=== PATIENT | female | born 1925 | race Caucasian/White ===

== ENCOUNTER 2016-10-08 10:51 | Inpatient (IN) | payer MEDICARE, OTHER ==
[~2016-10-08] VITALS: Ht 157.5 cm; Wt 65.7 kg
[~2016-10-08 10:51] MED LIST: BACL10TA PO; FURO20TA4 GT
[2016-10-08] MEDS ORDERED: ACET-2247 PO (11:16)
[2016-10-08] MEDS ORDERED: MOM30 PO (11:16)
[2016-10-08] MEDS ORDERED: ALBU8HFA IH (11:16)
[2016-10-08] MEDS ORDERED: BISA5TAB12 PO (11:16)
[2016-10-08 12:31] LABS: BASOPHILS % (AUTO) 0.5 % (0.0-2.0); EOSINOPHILS % (AUTO) 0.1 % (1.0-6.0); HEMATOCRIT 46.2 % (36-46); HEMOGLOBIN 14.7 g/dL (12.0-16.0); LYMPHOCYTES # (AUTO) 2.1 K/uL (1.0-4.8); LYMPHOCYTES % (AUTO) 13.9 % (22.0-44.0); MEAN CORPUSCULAR HEMOGLOBIN 29.9 pg (26.0-34.0); MEAN CORPUSCULAR HGB CONC 31.8 G/dL (31.0-37.0); MEAN CORPUSCULAR VOLUME 94 fL (80-100); MONOCYTES # (AUTO) 1.3 K/uL (0.1-1.0); MONOCYTES % (AUTO) 8.6 % (2.0-9.0); NEUTROPHILS # (AUTO) 11.6 K/uL (1.8-7.7); NEUTROPHILS % (AUTO) 76.9 % (40.0-70.0); PLATELET COUNT (AUTO) 125 K/uL (150-450); RED BLOOD CELL COUNT(AUTO) 4.91 MIL/uL (4.00-5.20); RED CELL DISTRIBUTION WIDTH 13.9 % (11.5-14.5); WHITE BLOOD COUNT (AUTO) 15.1 K/uL (4.5-11.0)
[2016-10-08 12:41] LABS: PROTHROMBIN TIME 10.7 SEC (9.4-11.6)
[2016-10-08 13:53] LABS: ANION GAP 4 mmol/L (8-16); CALCIUM, TOTAL 8.9 mg/dL (8.8-10.5); CARBON DIOXIDE 32 mmol/L (22-29); CHLORIDE 92 mmol/L (98-107); CREATININE 0.71 mg/dL (0.60-1.30); GLOMERULAR FILTR. RATE CALC > 60 mL/min (>60); POTASSIUM 4.8 mmol/L (3.5-5.1); SODIUM SERUM 128 mmol/L (136-145); UREA NITROGEN, BLOOD 22 mg/dL (7-18)
[2016-10-08 14:13] LABS: APPEARANCE,URINE CLOUDY (CLEAR); GLUCOSE, URINE (UA) NEGATIVE (NEGATIVE); KETONES,URINE NEGATIVE (NEGATIVE); LEUKOCYTE ESTERASE ,URINE NEGATIVE (NEGATIVE); OCCULT BLOOD,URINE NEGATIVE (NEGATIVE); PROTEIN,URINE POS 1+ (NEGATIVE)
[2016-10-08 14:14] LABS: ADD UA MICROSCOPIC YES
[2016-10-08 14:15] LABS: B-TYPE NATRIURETIC PEPTIDE 215 pg/mL (0-100)
[2016-10-08 14:18] LABS: ALANINE AMINOTRANSFERASE 34 U/L (12-78); ALBUMIN 2.7 g/dL (3.4-5.0); ASPARTATE AMINOTRANSFERASE 26 U/L (15-37); BILIRUBIN,TOTAL 0.6 mg/dL (0.1-1.0); CREATINE KINASE MB 1.8 ng/mL (0-5); CREATINE KINASE, TOTAL 156 U/L (26-192); TOTAL PROTEIN, SERUM 7.3 g/dL (6.4-8.2)
[2016-10-08 14:23] LABS: RBC,URINE None Seen /HPF (0-2); SQUAMOUS EPITHELIAL CELL,UR Few /LPF (None Seen); WBC,URINE None Seen /HPF (0-5)
[2016-10-08] MEDS ORDERED: SODIUM CHLORIDE 0.9% 1,000 ML IV ONE (15:30)
[2016-10-08] MEDS ORDERED: VANCOMYCIN HCL 1 GM/D5% WATER 200 ML IV ONE (15:45)
[2016-10-08 17:25] VITALS: BP 164/76
[2016-10-08] MEDS: DEXTROSE 5%-0.45% SODIUM CHL 1,000 ML IV SCH (19:27)
[2016-10-08 20:12] VITALS: BP 123/52
[2016-10-08] MEDS ORDERED: ONDANSETRON HCL 4 MG/2 ML VIAL IVP PRN (21:00)
[2016-10-08] MEDS ORDERED: BISACODYL 10 MG RECTAL RECTAL SUPPOSITORY PR PRN (21:00)
[2016-10-08] MEDS ORDERED: ACETAMINOPHEN 325 MG TABLET PO PRN (21:00)
[2016-10-08 23:31] VITALS: BP_SYST 160; BP_SYST 162; BP_DIAS 72; BP_DIAS 91
[2016-10-08] MEDS: HEPARIN SODIUM,PORCINE 5,000 UNITS/ML VIAL SQ SCH (23:44)
[2016-10-09] VITALS (7 sets, daily range): BP systolic 113–147; BP diastolic 44–92
[2016-10-09] MEDS ORDERED: 0.9% SODIUM CHLORIDE 5 ML NEB SOLUTION NEB ONE ×3 (00:27→23:55)
[2016-10-09] MEDS: ALBUTEROL SULFATE 2.5 MG/0.5 ML NEB SOLUTION NEB PRN ×2 (00:27→20:06)
[2016-10-09] MEDS ORDERED: SODIUM CL IRRIG SOLN BOTTLE 250 ML IRRIG ONE (00:30)
[2016-10-09 07:11] LABS: BASOPHILS # (AUTO) 0.02 K/uL (0.00-0.20); BASOPHILS % (AUTO) 0.2 % (0.0-2.0); EOSINOPHILS # (AUTO) 0.01 K/uL (0.00-0.70); EOSINOPHILS % (AUTO) 0.12 % (1.0-6.0); HEMATOCRIT 44.7 % (36-46); HEMOGLOBIN 14.4 g/dL (12.0-16.0); LYMPHOCYTES # (AUTO) 1.3 K/uL (1.0-4.8); MEAN CORPUSCULAR HEMOGLOBIN 30.9 pg (26.0-34.0); MEAN CORPUSCULAR HGB CONC 32.2 G/dL (31.0-37.0); MEAN CORPUSCULAR VOLUME 96 fL (80-100); MONOCYTES # (AUTO) 0.4 K/uL (0.1-1.0); MONOCYTES % (AUTO) 3.9 % (2.0-9.0); NEUTROPHILS # (AUTO) 8.9 K/uL (1.8-7.7); NEUTROPHILS % (AUTO) 83.8 % (40.0-70.0); PLATELET COUNT (AUTO) 149 K/uL (150-450); RED BLOOD CELL COUNT(AUTO) 4.65 MIL/uL (4.00-5.20); RED CELL DISTRIBUTION WIDTH 14.2 % (11.5-14.5); WHITE BLOOD COUNT (AUTO) 10.6 K/uL (4.5-11.0)
[2016-10-09 07:28] LABS: ANION GAP 4 mmol/L (8-16); CALCIUM, TOTAL 8.9 mg/dL (8.8-10.5); CARBON DIOXIDE 31 mmol/L (22-29); CHLORIDE 93 mmol/L (98-107); CREATININE 0.65 mg/dL (0.60-1.30); GLOMERULAR FILTR. RATE CALC > 60 mL/min (>60); POTASSIUM 5.3 mmol/L (3.5-5.1); SODIUM SERUM 128 mmol/L (136-145); UREA NITROGEN, BLOOD 18 mg/dL (7-18)
[2016-10-09] MEDS: DEXTROSE 5%-0.45% SODIUM CHL 1,000 ML IV SCH ×2 (08:03→23:28)
[2016-10-09] MEDS: VANCOMYCIN HCL 1.25 GM in DEXTROSE 5%-WATER 250 ML IV SCH (08:04)
[2016-10-09] MEDS: PANTOPRAZOLE SODIUM 40 MG/VIAL IVP SCH (08:04)
[2016-10-09] MEDS: HEPARIN SODIUM,PORCINE 5,000 UNITS/ML VIAL SQ SCH ×3 (08:04→23:28)
[2016-10-09] MEDS ORDERED: DIATRIZOATE MEGLU/SOD 660/100 MG/ML 120 ML BOTTLE ONE (17:15)
[2016-10-10 05:14] VITALS: BP 135/79
[2016-10-10] MEDS: PANTOPRAZOLE SODIUM 40 MG/VIAL IVP SCH (07:34)
[2016-10-10] MEDS: VANCOMYCIN HCL 1.25 GM in DEXTROSE 5%-WATER 250 ML IV SCH (07:34)
[2016-10-10] MEDS: HEPARIN SODIUM,PORCINE 5,000 UNITS/ML VIAL SQ SCH ×3 (07:35→23:42)
[2016-10-10 07:53] LABS: ANION GAP 7 mmol/L (8-16); CALCIUM, TOTAL 8.2 mg/dL (8.8-10.5); CARBON DIOXIDE 28 mmol/L (22-29); CHLORIDE 93 mmol/L (98-107); CREATININE 0.69 mg/dL (0.60-1.30); GLOMERULAR FILTR. RATE CALC > 60 mL/min (>60); SODIUM SERUM 128 mmol/L (136-145); UREA NITROGEN, BLOOD 16 mg/dL (7-18)
[2016-10-10 08:04] VITALS: BP 137/65
[2016-10-10 11:33] VITALS: BP 152/76
[2016-10-10] MEDS ORDERED: LIDOCAINE HCL/PF 1% 30 ML VIAL ONE (14:16)
[2016-10-10 15:38] VITALS: BP 172/81
[2016-10-10] MEDS: NYSTATIN/TRIAMCINOLONE 15 GM OINTMENT TP SCH ×2 (17:00→21:14)
[2016-10-10] MEDS: DEXTROSE 5%-0.45% SODIUM CHL 1,000 ML IV SCH (18:02)
[2016-10-10 20:00] VITALS: BP 134/52
[2016-10-10] MEDS: ALBUTEROL SULFATE 2.5 MG/0.5 ML NEB SOLUTION NEB PRN ×2 (20:28)
[2016-10-10] MEDS ORDERED: 0.9% SODIUM CHLORIDE 5 ML NEB SOLUTION NEB ONE (20:29)
[2016-10-11] VITALS (7 sets, daily range): BP systolic 117–165; BP diastolic 58–76
[2016-10-11] MEDS: DEXTROSE 5%-0.45% SODIUM CHL 1,000 ML IV SCH (04:52)
[2016-10-11 06:01] LABS: BASOPHILS # (AUTO) 0.04 K/uL (0.00-0.20); BASOPHILS % (AUTO) 0.5 % (0.0-2.0); EOSINOPHILS % (AUTO) 1.07 % (1.0-6.0); HEMATOCRIT 37.3 % (36-46); HEMOGLOBIN 12.4 g/dL (12.0-16.0); LYMPHOCYTES # (AUTO) 0.7 K/uL (1.0-4.8); LYMPHOCYTES % (AUTO) 7.4 % (22.0-44.0); MEAN CORPUSCULAR HEMOGLOBIN 31.5 pg (26.0-34.0); MEAN CORPUSCULAR HGB CONC 33.1 G/dL (31.0-37.0); MEAN CORPUSCULAR VOLUME 95 fL (80-100); MONOCYTES # (AUTO) 0.3 K/uL (0.1-1.0); MONOCYTES % (AUTO) 3.2 % (2.0-9.0); NEUTROPHILS # (AUTO) 8.2 K/uL (1.8-7.7); PLATELET COUNT (AUTO) 149 K/uL (150-450); RED BLOOD CELL COUNT(AUTO) 3.92 MIL/uL (4.00-5.20); RED CELL DISTRIBUTION WIDTH 13.5 % (11.5-14.5); WHITE BLOOD COUNT (AUTO) 9.4 K/uL (4.5-11.0)
[2016-10-11 06:13] LABS: NEUTROPHILS % (AUTO) 87.8 % (40.0-70.0)
[2016-10-11 06:20] LABS: ANION GAP 3 mmol/L (8-16); CALCIUM, TOTAL 8.2 mg/dL (8.8-10.5); CARBON DIOXIDE 31 mmol/L (22-29); CHLORIDE 93 mmol/L (98-107); CREATININE 0.59 mg/dL (0.60-1.30); GLOMERULAR FILTR. RATE CALC > 60 mL/min (>60); POTASSIUM 4.5 mmol/L (3.5-5.1); SODIUM SERUM 127 mmol/L (136-145); UREA NITROGEN, BLOOD 11 mg/dL (7-18)
[2016-10-11 08:16] LABS: RBC MORPHOLOGY COMMENT NORMAL RBC MORPH
[2016-10-11] MEDS: NYSTATIN/TRIAMCINOLONE 15 GM OINTMENT TP SCH (08:34)
[2016-10-11] MEDS: HEPARIN SODIUM,PORCINE 5,000 UNITS/ML VIAL SQ SCH ×2 (08:56→15:42)
[2016-10-11] MEDS: VANCOMYCIN HCL 1.25 GM in DEXTROSE 5%-WATER 250 ML IV SCH (08:56)
[2016-10-11] MEDS: PANTOPRAZOLE SODIUM 40 MG/VIAL IVP SCH (08:56)
[2016-10-11] MEDS ORDERED: SODIUM CHLORIDE 0.9% 250 ML IV ONE (22:02)
[2016-10-11] MEDS: VANCOMYCIN HCL 750 MG in DEXTROSE 5%-WATER 150 ML IV SCH (22:11)
[2016-10-11] MEDS ORDERED: DEXTROSE 5%-0.45% SODIUM CHL 1,000 ML IV ONE (23:15)
[2016-10-12] MEDS: NYSTATIN/TRIAMCINOLONE 15 GM OINTMENT TP SCH ×3 (00:45→21:09)
[2016-10-12] MEDS: HEPARIN SODIUM,PORCINE 5,000 UNITS/ML VIAL SQ SCH ×3 (00:45→16:29)
[2016-10-12 04:00] VITALS: BP 130/94
[2016-10-12 06:50] LABS: ANION GAP 4 mmol/L (8-16); CALCIUM, TOTAL 8.2 mg/dL (8.8-10.5); CARBON DIOXIDE 30 mmol/L (22-29); CHLORIDE 91 mmol/L (98-107); CREATININE 0.55 mg/dL (0.60-1.30); GLOMERULAR FILTR. RATE CALC > 60 mL/min (>60); POTASSIUM 4.7 mmol/L (3.5-5.1); SODIUM SERUM 125 mmol/L (136-145); UREA NITROGEN, BLOOD 7 mg/dL (7-18)
[2016-10-12 08:00] VITALS: BP 124/70
[2016-10-12] MEDS: VANCOMYCIN HCL 750 MG in DEXTROSE 5%-WATER 150 ML IV SCH ×2 (08:24→21:09)
[2016-10-12] MEDS: PANTOPRAZOLE SODIUM 40 MG/VIAL IVP SCH (08:24)
[2016-10-12 11:49] VITALS: BP 135/86
[2016-10-12 15:42] VITALS: BP 138/83
[2016-10-12 19:11] VITALS: BP 135/85
[2016-10-12 23:36] VITALS: BP 125/51
[2016-10-13] MEDS: HEPARIN SODIUM,PORCINE 5,000 UNITS/ML VIAL SQ SCH ×2 (00:02→08:29)
[2016-10-13 03:30] VITALS: BP 102/50
[2016-10-13] MEDS ORDERED: SODIUM CHLORIDE 0.9% 250 ML IV ONE (05:52)
[2016-10-13 07:15] VITALS: BP 113/57
[2016-10-13 07:36] LABS: ANION GAP 1 mmol/L (8-16); CALCIUM, TOTAL 8.2 mg/dL (8.8-10.5); CARBON DIOXIDE 34 mmol/L (22-29); CHLORIDE 95 mmol/L (98-107); CREATININE 0.63 mg/dL (0.60-1.30); GLOMERULAR FILTR. RATE CALC > 60 mL/min (>60); POTASSIUM 4.2 mmol/L (3.5-5.1); SODIUM SERUM 130 mmol/L (136-145); UREA NITROGEN, BLOOD 7 mg/dL (7-18)
[2016-10-13] MEDS ORDERED: VANCOMYCIN HCL 1 GM/D5% WATER 200 ML IV SCH (08:00)
[2016-10-13] MEDS: PANTOPRAZOLE SODIUM 40 MG/VIAL IVP SCH (08:29)
[2016-10-13] MEDS: NYSTATIN/TRIAMCINOLONE 15 GM OINTMENT TP SCH (08:30)
== END 2016-10-13 12:05 | DRG 393 ==
LOC: EMS 10:53 → 6N 16:29
PROVIDERS: ADMIT Internal Medicine; ATTEND Internal Medicine
PROC: 0D20XUZ Change Feeding Device in Upper Intestinal Tract, External Approach (ICD-10-PCS; principal; 2016-10-10)
PROC: 05HF33Z Insertion of Infusion Device into Left Cephalic Vein, Percutaneous Approach (ICD-10-PCS; 2016-10-11)
DX: K94.22 Gastrostomy infection (principal); E43 Unspecified severe protein-calorie malnutrition; L03.311 Cellulitis of abdominal wall; E87.1 Hypo-osmolality and hyponatremia; R47.01 Aphasia; I10 Essential (primary) hypertension; F01.50 Vascular dementia, unspecified severity, without behavioral disturbance, psychotic disturbance, mood disturbance, and anxiety; J44.9 Chronic obstructive pulmonary disease, unspecified; K21.9 Gastro-esophageal reflux disease without esophagitis; R62.7 Adult failure to thrive; K94.23 Gastrostomy malfunction; Y82.8 Other medical devices associated with adverse incidents; Y83.8 Other surgical procedures as the cause of abnormal reaction of the patient, or of later complication, without mention of misadventure at the time of the procedure; Z74.01 Bed confinement status; Z79.51 Long term (current) use of inhaled steroids; Z79.899 Other long term (current) drug therapy; Z68.26 Body mass index [BMI] 26.0-26.9, adult; I69.391 Dysphagia following cerebral infarction; I69.320 Aphasia following cerebral infarction; Z86.19 Personal history of other infectious and parasitic diseases; Y92.9 Unspecified place or not applicable
CPT/HCPCS: 36245; 49440; 87040; 87081; 87086; 93005; 94640; 96365; 99285; C9113; J1644; J3370; J3490; J7050; J7060

== ENCOUNTER → 2016-10-22 | Outpatient (CLI) | payer MEDICARE, OTHER ==
[~2016-10-22] MED LIST changes: +ACET-2247 PO; +ALBU8HFA IH; +BISA5TAB12 PO; +DIATRIZOATE MEGLU/SOD 660/100 MG/ML 120 ML BOTTLE ONE; +LIDOCAINE HCL/PF 1% 30 ML VIAL ONE; +MOM30 PO
== END | disposition home or self-care (01) ==
LOC: RADMN 08:31
PROVIDERS: ATTEND Family Medicine
DX: Z43.1 Encounter for attention to gastrostomy (principal); R13.10 Dysphagia, unspecified
CPT/HCPCS: 36245; 49450; C1769; J3490; Q9963